=== PATIENT | male | born 1975 | race American Indian/Alaskan Native ===

== ENCOUNTER 2017-01-29 20:56 | Inpatient (IN) | payer OTHER ==
[2017-01-29 20:56] VITALS: BMI 30.5
[2017-01-29] MEDS ORDERED: Sodium Chloride 0.9% 1,000 ML IV ONE ×2 (21:08)
--- NOTE | 2017-01-29 21:18 | C.PDOC ---
History Of Present Illness 41 year old male brought in by EMS for possible drug and ETOH abuse as per girlfriend. Denies physical complaints at this time. Chief Complaint (Nursing): Substance Abuse History Per: EMS History/Exam Limitations: no limitations Onset/Duration Of Symptoms: Hrs Current Symptoms Are (Timing): Still Present Suicide/Self Injury Attempted (Context): None Modifying Factor(s): Alcohol, Other (Substance abuse) Associated Symptoms: denies: Depression, Suicidal Thoughts, Suicidal Plan Involuntary Hold By: None Recent travel outside of the [place]: No Past Medical History Reviewed: Historical Data, Nursing Documentation, Vital Signs Vital Signs: Last Vital Signs Temp 97.9 F 01/29/17 21:05 Pulse 96 H 01/29/17 21:05 Resp 20 01/29/17 21:05 BP 175/97 H 01/29/17 21:05 Pulse Ox 95 01/29/17 23:03 - Medical History PMH: Arthritis (BACK; SHOULDER), HTN - [facility] EXTRACTION OF VERTEBRAL BONE MARROW, PERCUTANEOUS APPROACH (05/04/16) FUSION 2-6 C JT W AUTOL SUB, ANT APPR A COL, OPEN (05/04/16) IMMOBILIZ/WOUND ATTN NEC (11/19/12) INSPECTION OF LARYNX, ENDO (05/04/16) RESECTION OF CERVICAL VERTEBRAL DISC, OPEN APPROACH (05/04/16) Family History: States: Unknown Family Hx - Social History Hx Tobacco Use: No Hx Alcohol Use: Yes Hx Substance Use: Yes - Immunization History Hx Tetanus Toxoid Vaccination: No Hx Influenza Vaccination: No Hx Pneumococcal Vaccination: No Review Of Systems Constitutional: Negative for: Fever, Chills Gastrointestinal: Negative for: Nausea, Vomiting, Diarrhea Physical Exam - Physical Exam Appears: Non-toxic, No Acute Distress, Other (Alert, conscious) Skin: Normal Color, Warm, Dry Head: Atraumatic, Normacephalic Oral Mucosa: Moist Neck: Normal, No Midline Cervical Tenderness, No Paracervical Tenderness, Supple Chest: Symmetrical Cardiovascular: Rhythm Regular Respiratory: Normal Breath Sounds, No Rales, No Rhonchi, No Wheezing Gastrointestinal/Abdominal: Soft, No Tenderness Extremity: Deformity (Left upper arm with swelling, does not remember what happened to him. No wrist weakness noted.) Pulses: Left Radial: Normal, Right Radial: Normal Neurological/Psych: Oriented x3, Normal Speech, Normal Cognition, Normal Motor, Normal Sensation ED Course And Treatment - Laboratory Results Result Diagrams: 01/29/17 21:17 01/29/17 21:17 ECG: Interpreted By Me, Viewed By Me ECG Rhythm: Sinus Rhythm ECG Interpretation: No Acute Changes Interpretation Of ECG: NSR, possible LVH by voltage criteria. Rate From EC O2 Sat by Pulse Oximetry: 95 (Room air) Pulse Ox Interpretation: Normal - Other Rad No standard instances X-Ray: Interpreted by Me Interpretation: fracture midshaft of left humerus Progress Note: Blood work, urinalysis, left humerous x-ray and left shoulder x- ray ordered. IV fluids and toradol administered. Upon further questioning, patient reports he was outside and passed out, he does not remember what happened after. Disposition Discussed With : Moisés Hartman Doctor Will See Patient In The: Hospital Counseled Patient/Family Regarding: Diagnosis - Disposition Disposition: HOSPITALIZED Disposition Time: 23:02 Condition: STABLE Forms: [facility] ([place]i) - POA Present On Arrival: None - Clinical Impression Clinical Impression: Syncope, Fracture, humerus closed, shaft - Scribe Statement The provider has reviewed the documentation as recorded by the Scribe Iker Heart All medical record entries made by the Scribe were at my direction and personally dictated by me. I have reviewed the chart and agree that the record accurately reflects my personal performance of the history, physical exam, medical decision making, and the department course for this patient. I have also personally directed, reviewed, and agree with the discharge instructions and disposition.
[2017-01-29 21:21] LABS: BASO # 0.1 K/uL (0.0-0.2); BASO % 1.3 % (0.0-2.0); EOS # 0.2 K/uL (0.0-0.7); EOS % 2.1 % (0.0-4.0); HEMATOCRIT 39.4 % (35.0-51.0); LYMPH # 4.5 K/uL (1.0-4.3); LYMPH % 44.1 % (20.0-40.0); MEAN CELL VOLUME 74.6 fL (80.0-94.0); MEAN CORPUSCULAR HEMOGLOBIN 23.9 pg (27.0-31.0); MEAN CORPUSCULAR HGB CONC 32.1 g/dL (33.0-37.0); MEAN PLATELET VOLUME 8.3 fL (7.2-11.7); MONO # 0.5 K/uL (0.0-0.8); NRBC % 0.1 % (0.0-2.0); RED CELL DISTRIBUTION WIDTH 14.7 % (11.5-14.5); WHITE BLOOD COUNT 10.2 K/uL (4.8-10.8)
[2017-01-29 21:33] LABS: ALB/GLOB RATIO 1.6 (1.0-2.1); ALCOHOL SERUM 75 mg/dl (0-10); ALKALINE PHOSPHATASE 80 U/L (38-126); ALT/SGPT 73 U/L (21-72); AST/SGOT 47 U/L (17-59); BILIRUBIN,TOTAL 0.6 mg/dL (0.2-1.3); BLOOD UREA NITROGEN 16 mg/dL (9-20); CALCIUM 8.6 mg/dl (8.6-10.4); CARBON DIOXIDE 22 mmol/L (22-30); CHLORIDE 100 mmol/L (98-107); GFR AFRICAN-AMERICAN > 60; GLUCOSE,RANDOM 240 mg/dL (75-110); POTASSIUM 3.9 mmol/L (3.6-5.2); SODIUM 135 mmol/L (132-148); TOTAL PROTEIN 7.5 g/dL (6.3-8.3)
--- NOTE | 2017-01-29 23:50 | CT ---
EXAM: CT Head Without Intravenous Contrast CLINICAL HISTORY: 41 years old, male; Pain; Headache and other: Passing out; Patient HX: 05-04-16; Additional info: Pasing out TECHNIQUE: Axial computed tomography images of the head/brain without intravenous contrast. All CT scans at this facility use one or more dose reduction techniques, viz.: automated exposure control; ma/kV adjustment per patient size (including targeted exams where dose is matched to indication; i.e. head); or iterative reconstruction technique. Coronal and sagittal reformatted images were created and reviewed. COMPARISON: CT - HEAD W/O (CODE STROKE) 2016-05-04 02:30 FINDINGS: Brain: No intracranial hemorrhage. No mass. Several scattered foci of decreased attenuation within periventricular/subcortical white matter. No definite edema. Ventricles: No hydrocephalus. Bones/joints: No acute fracture. Soft tissues: Unremarkable. Vasculature: Mild atherosclerotic disease of intracranial arteries. Sinuses: Near complete opacification of RIGHT frontal sinus. Scattered mild mucosal thickening of ethmoid sinuses. Scattered minimal mucosal thickening of remaining sinuses. Small LEFT maxillary retention cyst. Mastoid air cells: No mastoid effusion. Orbits: Unremarkable as visualized. IMPRESSION: 1. Nonspecific white matter changes. Acute infarction may be CT occult within first 24 hours. If a focal deficit persists, consider followup CT or MRI for further evaluation. 2. Sinus disease. 3. Incidental/non-acute findings are described above.
[2017-01-30 05:14] LABS: URINE BACTERIA RARE (<OCC); URINE BILIRUBIN NEGATIVE (NEGATIVE); URINE BLOOD NEGATIVE (NEGATIVE); URINE COLOR Yellow (YELLOW); URINE GLUCOSE (UA) 2+ mg/dL (Normal); URINE KETONE NEGATIVE (NEGATIVE); URINE LEUKOCYTE ESTERASE NEG Leu/uL (Negative); URINE PROTEIN NEGATIVE (NEGATIVE); URINE UROBILINOGEN NORMAL mg/dL (0.2-1.0)
[2017-01-30] MEDS: Oxycodone/Acetaminophen 5/325 mg Tab PO PRN ×3 (09:47→20:10)
[2017-01-30] MEDS: Multiple Vitamins Tab PO SCH (09:47)
[2017-01-30] MEDS: GlipiZIDE 5 mg SR Tab PO SCH (09:47)
--- NOTE | 2017-01-30 09:52 | RAD ---
PROCEDURE: Radiographs of the Left Shoulder HISTORY: deformity COMPARISON: No prior. FINDINGS: BONES: There is angulated displaced fracture at the midshaft of the left humerus. Patient status post prior internal fixation at the lateral aspect of the left clavicle. JOINTS: Normal. Glenohumeral and acromioclavicular joints preserved. No osteoarthritis. SOFT TISSUES: Normal. OTHER FINDINGS: None. IMPRESSION: Acute displaced and angulated fracture at the midshaft of the left humerus.
--- NOTE | 2017-01-30 09:57 | RAD ---
PROCEDURE: Radiographs of the left humerus. HISTORY: deformity COMPARISON: None. FINDINGS: BONES: Acute displaced and angulated comminuted fracture at the midshaft of the left humerus. Patient status post internal fixation at the distal left humerus and at the left elbow. Internal fixation hardware is also noted at the distal lateral portion of the left clavicle. SOFT TISSUES: Normal. OTHER FINDINGS: None. IMPRESSION: Acute comminuted and angulated fracture at the midshaft of the left humerus.
[2017-01-30] MEDS: (Novolog) Insulin Aspart, Recombinant 100 u/ml 10 ml vial SC SCH ×3 (12:33→22:12)
--- NOTE | 2017-01-30 20:31 | CON ---
NEUROLOGY CONSULTATION REASON FOR CONSULTATION: Abnormal CT head. HISTORY OF PRESENTING ILLNESS: The patient is a 41-year-old male who was admitted in the hospital after he fell down and was intoxicated and apparently had left humeral fracture. He had a CT scan of the head done which is abnormal, that is why neurology consultation was called. The CT scan of the head showed nonspecific white matter changes, several scattered foci of decreased of attenuation with periventricular white matter, no definite edema. He never had loss of vision. He never had focal weakness in the arm or leg. He never has a focal neurologic deficit. REVIEW OF SYSTEMS: Denies any headache, dizziness, chest pain, shortness of breath, abdominal pain, constipation, diarrhea, dysuria, pyuria, cough, or sputum production. PAST MEDICAL HISTORY: Includes hypertension, diabetes mellitus, hypercholesterolemia. MEDICATIONS AT HOME: Included multivitamins, metoprolol, losartan, glipizide, folic acid, thiamine, and Crestor. ALLERGIES: NO KNOWN DRUG ALLERGIES. SOCIAL HISTORY: The patient does smoke cigarettes. He does drink alcohol. He denies use of any illicit drugs. FAMILY HISTORY: Reviewed and noncontributory to the case. PHYSICAL EXAMINATION: GENERAL: The patient is an middle-aged male lying on the bed, in no acute distress. VITAL SIGNS: His blood pressure is 163/93, heart rate is 89 per minute, breathing at a rate of 16 per minute, temperature 98.3 degree Fahrenheit. HEENT: Head is normocephalic and atraumatic. NECK: Supple. There are no carotid bruit. LUNGS: Clear. CARDIOVASCULAR: S1 and S2 are audible. No murmurs. ABDOMEN: Soft and nontender. Bowel sounds are present. NEUROLOGIC: Mental status: The patient is awake, alert, oriented to time, place, person. Speech is fluent. Naming and repetition normal. Memory and cognition are intact. Cranial nerves: Pupils are 4 mm bilaterally, reactive to light. Visual rosado are full. Extraocular movements are intact. There is no facial asymmetry. Palate is upgoing bilaterally and tongue is midline. Motor examination: Tone is normal. Power is 5/5 bilaterally in all extremities. Reflexes are +2 and symmetrical. Unable to elicit reflex in the left upper extremity where his left arm is in a bandage because of left humeral fracture. Plantars are downgoing bilaterally. Cerebellar examination: [id number] shows no dysmetria. Gait is deferred at the moment. Sensory examination is intact to soft touch and pinprick. LABORATORY DATA: Reviewed, shows WBC of 10.2, hemoglobin 12.6, hematocrit 39.4 and platelets of 298. Sodium is 135, potassium 3.9, chloride 100, carbon dioxide 22, BUN of 16, creatinine of 0.9, and glucose of 240. IMPRESSION: Abnormal CT scan of the head which appears to be small vessel ischemic disease of the brain. RECOMMENDATIONS: 1. The patient to have an MRI of the brain with and without contrast. 2. Further recommendations after obtaining the MRI results. Thank you for the opportunity to participate in the care of this patient. Sofia Pool MD
--- NOTE | 2017-01-30 23:46 | CP.PCM.HP ---
History of Present Illness - History of Present Illness History of Present Illness: 41 year old male brought in by EMS for possible drug and ETOH abuse as per girlfriend. Denies physical complaints at this time. Present on Admission - Present on Admission Any Indicators Present on Admission: Yes Past Patient History - Infectious Disease Hx of Infectious Diseases: None - Past Medical History & Family History Past Medical History?: Yes - Past Social History Smoking Status: Light Smoker < 10 Cigarettes Daily - CARDIAC Hx Cardiac Disorders: Yes Hx Hypertension: Yes - PULMONARY Hx Respiratory Disorders: No - NEUROLOGICAL Hx Neurological Disorder: No - HEENT Hx HEENT Problems: No - RENAL Hx Chronic Kidney Disease: No - ENDOCRINE/METABOLIC Hx Endocrine Disorders: Yes Hx Diabetes Mellitus Type 2: Yes - HEMATOLOGICAL/ONCOLOGICAL Hx Blood Disorders: No - INTEGUMENTARY Hx Dermatological Problems: No - MUSCULOSKELETAL/RHEUMATOLOGICAL Hx Arthritis: Yes (BACK; SHOULDER) Hx Falls: Yes Hx Fractures: Yes (left elbow fx,collar bone,right shoulder rotellar cuff) Other/Comment: right pinky fx - GASTROINTESTINAL Hx Gastrointestinal Disorders: No - GENITOURINARY/GYNECOLOGICAL Hx Genitourinary Disorders: No - PSYCHIATRIC Hx Psychophysiologic Disorder: Yes Hx Substance Use: Yes - SURGICAL HISTORY Hx Surgeries: Yes Hx Orthopedic Surgery: Yes (RIGHT ROTATOR, LEFT ELBOW) - ANESTHESIA Hx Anesthesia: Yes Hx Anesthesia Reactions: No Hx Malignant Hyperthermia: No Has any member of the family had a problem w/ anesthesia?: No Meds Allergies/Adverse Reactions: Allergies Allergy/AdvReac Type Severity Reaction Status Date / Time No Known Allergies Allergy Verified 01/29/17 21:01 Physical Exam - Constitutional Appears: In Acute Distress, Agitated - Eye Exam Eye Exam: EOMI, Normal appearance, PERRL Pupil Exam: NORMAL ACCOMODATION, PERRL - Respiratory Exam Respiratory Exam: Clear to Auscultation Bilateral, NORMAL BREATHING PATTERN - Cardiovascular Exam Cardiovascular Exam: REGULAR RHYTHM - GI/Abdominal Exam GI & Abdominal Exam: Normal Bowel Sounds, Soft. absent: Tenderness - Rectal Exam Rectal Exam: Deferred Results - Vital Signs Recent Vital Signs: Last Vital Signs Temp 97.9 F 01/30/17 15:29 Pulse 71 01/30/17 15:29 Resp 20 01/30/17 15:29 BP 145/91 H 01/30/17 15:29 Pulse Ox 97 01/30/17 15:29 - Labs Result Diagrams: 01/29/17 21:17 01/29/17 21:17 Labs: Laboratory Results - last 24 hr 01/30/17 01/30/17 01/30/17 05:09 05:09 06:37 POC Glucose (mg/dL) 105 Urine Color Yellow Urine Clarity Clear Urine pH 5.0 Ur Specific [place] 1.012 Urine Protein Negative Urine Glucose (UA) 2+ H Urine Ketones Negative Urine Blood Negative Urine Nitrate Negative Urine Bilirubin Negative Urine Urobilinogen Normal Ur Leukocyte Esterase Neg Urine Bacteria Rare Urine Opiates Screen Negative Urine Methadone Screen Negative Ur Barbiturates Screen Negative Ur Phencyclidine Scrn Positive H Ur Amphetamines Screen Negative U Benzodiazepines Scrn Negative U Oth Cocaine Metabols Negative U Cannabinoids Screen Negative 01/30/17 01/30/17 01/30/17 11:34 17:23 21:52 POC Glucose (mg/dL) 163 H 116 H 248 H Urine Color Urine Clarity Urine pH Ur Specific [place] Urine Protein Urine Glucose (UA) Urine Ketones Urine Blood Urine Nitrate Urine Bilirubin Urine Urobilinogen Ur Leukocyte Esterase Urine Bacteria Urine Opiates Screen Urine Methadone Screen Ur Barbiturates Screen Ur Phencyclidine Scrn Ur Amphetamines Screen U Benzodiazepines Scrn U Oth Cocaine Metabols U Cannabinoids Screen Assessment & Plan (1) Closed fracture of shaft of left humerus Status: Suspected (2) Contusion of rib on left side Status: Suspected (3) Fracture, humerus closed, shaft Status: Acute (4) Syncope Status: Suspected (5) CVA (cerebral vascular accident) Status: Suspected (6) Nasal bone fracture Status: Suspected - Assessment and Plan (Free Text) Plan: Pt is for ortho pedic eval
[2017-01-31] MEDS: Oxycodone/Acetaminophen 5/325 mg Tab PO PRN ×3 (06:04→14:12)
[2017-01-31] MEDS: (Novolog) Insulin Aspart, Recombinant 100 u/ml 10 ml vial SC SCH ×4 (08:32→21:41)
[2017-01-31] MEDS: Multiple Vitamins Tab PO SCH (10:31)
[2017-01-31] MEDS: GlipiZIDE 5 mg SR Tab PO SCH (10:31)
--- NOTE | 2017-01-31 12:48 | RAD ---
PROCEDURE: Radiographs of the left humerus. HISTORY: left humeral shaft fx s/p splint COMPARISON: Left humerus 09/28/2016. FINDINGS: BONES: Somewhat less distracted fracture of the mid diaphysis of the left humerus is appreciated with varus angulation of the fracture site simply diminished. No new fractures appreciated separate from this area and no obvious dislocation is appreciated this patient status post ORIF distal left clavicular fracture as well as distal left humerus and proximal left ulna with fixation hardware remaining in place in all of these sites. SOFT TISSUES: Unremarkable. OTHER FINDINGS: None. IMPRESSION: Mid diaphyseal left humeral fracture somewhat less angulated than previously shown. No new interval fracture is identified. Old apparent healed fractures at the distal left clavicle, distal humerus and proximal ulna are again identified with fixation hardware in place.
--- NOTE | 2017-01-31 12:50 | RAD ---
PROCEDURE: Radiographs of the left elbow. HISTORY: elbow pain s/p fall COMPARISON: No prior. FINDINGS: BONES: Fracture of the mid diaphysis of the left humerus is appreciated with prior ORIF distal left humerus and proximal left ulna again identified as compared to prior left humerus radiographs 01/29/2017. Fixation hardware likely overlies healed fractures at this time. The radial head grossly appears intact. JOINTS: No dislocation is appreciated or subluxation. SOFT TISSUES: Normal. JOINT EFFUSION: None. OTHER FINDINGS: None IMPRESSION: No acute elbow fractures identified however fixation hardware remains placed at the distal humerus and proximal ulna which appears stable in the interval compared to prior left humeral radiographs 01/29/2017. Clinically correlate further.
--- NOTE | 2017-01-31 16:50 | RAD ---
PROCEDURE: Chest left rib series dated 01/31/2017. HISTORY: Status post fall with left sided rib pain COMPARISON: Comparison made with chest radiograph dated 05/12/2016 as well as prior rib series dated . . TECHNIQUE: Frontal radiograph of the chest and multiple oblique radiographs of the left ribs were obtained. FINDINGS: LEFT RIBS: No definitive radiographic evidence of acute displaced left-sided rib fracture. LUNGS: Poor inspiration with low lung volumes and crowded bronchovascular markings. There also appears to be some mild bibasilar atelectasis left greater than right. PLEURA: No pneumothorax or pleural fluid. CARDIOVASCULAR: Heart size is mildly enlarged. OTHER FINDINGS: Again noted are ORIF changes distal left clavicle. IMPRESSION: No evidence of acute displaced left-sided rib fracture. No evidence of pneumothorax. Poor inspiration with low lung volumes, crowded bronchovascular markings and mild bibasilar atelectasis.
--- NOTE | 2017-01-31 17:23 | CP.PCM.CON ---
History of Present Illness - History of Present Illness History of Present Illness: Ortho consultation Dr. Stark left arm pain 41M complains of left arm pain after fall. He doesn't not remember falling. Brought to ER by girlfriend for suspected drug and alcohol intoxication.Also complains of pain in elbow and left side of ribs. Denies headache, neck or back pain, RUE or BLE pain. +smoker, admits to ETOH, PCP use Patient had cervical spine surgery this year,(discectomy/fusion C4/C5 Dr. Ornelas) prior to surgery had LUE weakness and paresthesias, which he states have completely resolved postoperatively. (had prior workup for CVA) Left clavicle ORIF apporx 2.5 years ago (Dr. Gasca) Left elbow ORIF approx 24 years ago, limited extension at baseline per patient Review of Systems - Review of Systems All systems: reviewed and no additional remarkable complaints except - Constitutional Additional comments: no fever/chills - Cardiovascular Additional comments: denies CP - Respiratory Additional comments: denies SOB - Musculoskeletal Musculoskeletal: As Per HPI - Integumentary Integumentary: Swelling - Neurological Neurological: As Per HPI - Hematologic/Lymphatic Hematologic: absent: As Per HPI, Easy Bleeding, Easy Bruising, Lymphadenopathy, Other Past Patient History - Infectious Disease Hx of Infectious Diseases: None - Past Medical History & Family History Past Medical History?: Yes Past Family History: Reviewed and not pertinent - Past Social History Smoking Status: Light Smoker < 10 Cigarettes Daily - CARDIAC Hx Cardiac Disorders: Yes Hx Hypertension: Yes - PULMONARY Hx Respiratory Disorders: No - NEUROLOGICAL Hx Neurological Disorder: No - HEENT Hx HEENT Problems: No - RENAL Hx Chronic Kidney Disease: No - ENDOCRINE/METABOLIC Hx Endocrine Disorders: Yes Hx Diabetes Mellitus Type 2: Yes - HEMATOLOGICAL/ONCOLOGICAL Hx Blood Disorders: No - INTEGUMENTARY Hx Dermatological Problems: No - MUSCULOSKELETAL/RHEUMATOLOGICAL Hx Arthritis: Yes (BACK; SHOULDER) Hx Falls: Yes Hx Fractures: Yes (left elbow fx,collar bone,right shoulder rotellar cuff) Other/Comment: right pinky fx - GASTROINTESTINAL Hx Gastrointestinal Disorders: No - GENITOURINARY/GYNECOLOGICAL Hx Genitourinary Disorders: No - PSYCHIATRIC Hx Psychophysiologic Disorder: Yes Hx Substance Use: Yes - SURGICAL HISTORY Hx Surgeries: Yes Hx Orthopedic Surgery: Yes (RIGHT ROTATOR, LEFT ELBOW) - ANESTHESIA Hx Anesthesia: Yes Hx Anesthesia Reactions: No Hx Malignant Hyperthermia: No Has any member of the family had a problem w/ anesthesia?: No Meds Allergies/Adverse Reactions: Allergies Allergy/AdvReac Type Severity Reaction Status Date / Time No Known Allergies Allergy Verified 01/29/17 21:01 - Medications Medications: Current Medications Famotidine (Pepcid) 20 mg PO BID [facility] Last Admin: 01/31/17 10:31 Dose: 20 mg Folic Acid (Folic Acid) 1 mg PO DAILY [facility] Last Admin: 01/31/17 10:31 Dose: 1 mg Glipizide (Glucotrol Xl) 5 mg PO DAILY [facility] Last Admin: 01/31/17 10:31 Dose: 5 mg Heparin Sodium (Porcine) (Heparin) 5,000 units SC Q8 [facility] Last Admin: 01/31/17 14:06 Dose: 5,000 units Insulin Aspart (Novolog) 0 unit SC ACHS [facility] PRN Reason: Protocol Last Admin: 01/31/17 14:00 Dose: Not Given Ketorolac Tromethamine (Toradol) 30 mg IVP Q6 PRN PRN Reason: Pain, moderate (4-7) Last Admin: 01/31/17 16:10 Dose: 30 mg Losartan Potassium (Cozaar) 100 mg PO DAILY [facility] Last Admin: 01/31/17 10:31 Dose: 100 mg Metoprolol Tartrate (Lopressor) 50 mg PO BID [facility] Last Admin: 01/31/17 10:31 Dose: 50 mg Multivitamins (Hexavitamin) 1 tab PO DAILY [facility] Last Admin: 01/31/17 10:31 Dose: 1 tab Oxycodone/Acetaminophen (Percocet 5/325 Mg Tab) 2 tab PO Q4H PRN PRN Reason: Pain, severe (8-10) Stop: 02/02/17 08:54 Last Admin: 01/31/17 14:12 Dose: 2 tab Rosuvastatin Calcium (Crestor) 5 mg PO HS [facility] Last Admin: 01/30/17 21:15 Dose: 5 mg Thiamine HCl (Vitamin B1 Tab) 100 mg PO DAILY [facility] Last Admin: 01/31/17 10:31 Dose: 100 mg Zolpidem Tartrate (Ambien) 5 mg PO HS PRN PRN Reason: Insomnia Last Admin: 01/30/17 21:15 Dose: 5 mg Physical Exam - Constitutional Appears: Well, No Acute Distress - Head Exam Head Exam: ATRAUMATIC - Neck Exam Neck exam: Positive for: Full Rom, Normal Inspection - Respiratory Exam Respiratory Exam: NORMAL BREATHING PATTERN Additional comments: TTP left side ribs, no ecchymosis noted - Cardiovascular Exam Additional comments: +radial pulse - Expanded Upper Extremities Exam Left Upper Arm exam: deformity, swelling (well healed incision over distal clavicle) , tenderness Elbow exam: tenderness (TTP lateral elbow, pain with attempted ROM, mostly at fracture site, skin intact, no swelling or erythema to elbow) Forearm Wrist exam: full ROM (4/5 extnsion fingers/wrist (c/o arm pain)full fist , 5/5 wrist flexion, finger flexion), normal inspection Neuro motor exam: finger 2-5 abduction intact, thumb abduction, thumb IP flexion intact, thumb opposition intact, wrist extension intact Neurosensory exam: median nerve intact, radial nerve intact, ulnar nerve intact Vascular exam: radial pulse - Neurological Exam Neurological exam: Alert, Oriented x3 - Psychiatric Exam Psychiatric exam: Normal Affect, Normal Mood - Skin Skin Exam: Dry, Intact, Normal Color, Warm Results - Vital Signs Recent Vital Signs: Last Vital Signs Temp 98.2 F 01/31/17 09:35 Pulse 71 01/31/17 09:35 Resp 20 01/31/17 09:35 BP 159/84 H 01/31/17 09:35 Pulse Ox 95 01/31/17 09:35 - Labs Result Diagrams: 01/29/17 21:17 01/29/17 21:17 Labs: Laboratory Results - last 24 hr 01/30/17 01/30/17 01/31/17 17:23 21:52 06:48 POC Glucose (mg/dL) 116 H 248 H 133 H 01/31/17 16:50 POC Glucose (mg/dL) 109 Assessment & Plan (1) Closed fracture of shaft of left humerus Assessment and Plan: patient with long arm posterior splint from ER, stops at level of fracture Advised patient that improper splint was applied, and new splint with attempted closed reduction of fracture will be attempted. Advised patient risk of NV injury with injury and reduction, possible need for surgery regardless of reduction, pain control and better immobilization of fracture wiht coaptation splint indicated, patient verbally consents to splint application and reduction. Patient tolerated well. NVID pre and post splint application/ reduction. Some noted weakness to wrist and finger extension, but complains of pain. all iimaging reviewed with Dr. Stark. Says position is acceptable, and to order rebolledo brace. If patient to be discharged over the weekend,, splint is acceptable at this time, and he can f/u in office of Dr. Stark next week, and can obtain brace (or at least rx) at that time. Patient orthopedically stable. Advised patient importance of ortho follow up, as still potential for needing surgery in the future, and once swelling improves patient needs to be advanced to rebolledo brace. Elbow imaging reviewed, no acute fracture appreciated. continue coaptation splint at all times, do not remove, keep dry, cuff and collar only, no sling NWB ice brace ordered, but discharge not to be held for brace, patient orthopedically stable in splint and can follow up in office for brace Status: Acute (2) Contusion of rib on left side Assessment and Plan: xrays reviewed, no fx per radiologist, no pneumo, encourage IS, OOB f/u as per medical team Status: Acute Radiology Interpretation - Notes: Notes:: atient Name / ID : MARIBEL BABIN / [id number] Exam Date : 01/31/2017 12:19:03 ( Approved ) Study Comment : Sex / Age : M / 41Y Creator : Chris Kathleen MD Dictator : Chris Kathleen MD Parimutuel Ticket Seller : Rating Specialist : Chris Kathleen MD Approver2 : Report Date : 01/31/2017 12:41:44 My Comment : PROCEDURE: Radiographs of the left humerus. HISTORY: left humeral shaft fx s/p splint COMPARISON: Left humerus 09/28/2016. FINDINGS: BONES: Somewhat less distracted fracture of the mid diaphysis of the left humerus is appreciated with varus angulation of the fracture site simply diminished. No new fractures appreciated separate from this area and no obvious dislocation is appreciated this patient status post ORIF distal left clavicular fracture as well as distal left humerus and proximal left ulna with fixation hardware remaining in place in all of these sites. SOFT TISSUES: Unremarkable. OTHER FINDINGS: None. IMPRESSION: Mid diaphyseal left humeral fracture somewhat less angulated than previously shown. No new interval fracture is identified. Old apparent healed fractures at the distal left clavicle, distal humerus and proximal ulna are again identified with fixation hardware in place. atient Name / ID : MARIBEL BABIN / [id number] Exam Date : 01/31/2017 12:19:03 ( Approved ) Study Comment : Sex / Age : M / 41Y Creator : Chris Kathleen MD Dictator : Chris Kathleen MD Parimutuel Ticket Seller : Rating Specialist : Chris Kathleen MD Approver2 : Report Date : 01/31/2017 12:45:17 My Comment : PROCEDURE: Radiographs of the left elbow. HISTORY: elbow pain s/p fall COMPARISON: No prior. FINDINGS: BONES: Fracture of the mid diaphysis of the left humerus is appreciated with prior ORIF distal left humerus and proximal left ulna again identified as compared to prior left humerus radiographs 01/29/2017. Fixation hardware likely overlies healed fractures at this time. The radial head grossly appears intact. JOINTS: No dislocation is appreciated or subluxation. SOFT TISSUES: Normal. JOINT EFFUSION: None. OTHER FINDINGS: None IMPRESSION: No acute elbow fractures identified however fixation hardware remains placed at the distal humerus and proximal ulna which appears stable in the interval compared to prior left humeral radiographs 01/29/2017. Clinically correlate further. atient Name / ID : MARIBEL BABIN / [id number] Exam Date : 01/31/2017 12:19:03 ( Approved ) Study Comment : Sex / Age : M / 41Y Creator : Chris Kathleen MD Dictator : Chris Kathleen MD Parimutuel Ticket Seller : Rating Specialist : Chris Kathleen MD Approver2 : Report Date : 01/31/2017 12:41:44 My Comment : PROCEDURE: Radiographs of the left humerus. HISTORY: left humeral shaft fx s/p splint COMPARISON: Left humerus 09/28/2016. FINDINGS: BONES: Somewhat less distracted fracture of the mid diaphysis of the left humerus is appreciated with varus angulation of the fracture site simply diminished. No new fractures appreciated separate from this area and no obvious dislocation is appreciated this patient status post ORIF distal left clavicular fracture as well as distal left humerus and proximal left ulna with fixation hardware remaining in place in all of these sites. SOFT TISSUES: Unremarkable. OTHER FINDINGS: None. IMPRESSION: Mid diaphyseal left humeral fracture somewhat less angulated than previously shown. No new interval fracture is identified. Old apparent healed fractures at the distal left clavicle, distal humerus and proximal ulna are again identified with fixation hardware in place. atient Name / ID : MARIBEL BABIN / [id number] Exam Date : 01/29/2017 21:16:51 ( Approved ) Study Comment : Sex / Age : M / 41Y Creator : Shawn Morelos MD Dictator : Shawn Morelso MD Parimutuel Ticket Seller : Rating Specialist : Shawn Morelos MD Approver2 : Report Date : 01/30/2017 09:50:14 My Comment : PROCEDURE: Radiographs of the Left Shoulder HISTORY: deformity COMPARISON: No prior. FINDINGS: BONES: There is angulated displaced fracture at the midshaft of the left humerus. Patient status post prior internal fixation at the lateral aspect of the left clavicle. JOINTS: Normal. Glenohumeral and acromioclavicular joints preserved. No osteoarthritis. SOFT TISSUES: Normal. OTHER FINDINGS: None. IMPRESSION: Acute displaced and angulated fracture at the midshaft of the left humerus. Patient Name / ID : MARIBEL BABIN / [id number] Exam Date : 01/29/2017 21:16:32 ( Approved ) Study Comment : Sex / Age : M / 41Y Creator : Shawn Morelos MD Dictator : Shawn Morelos MD Parimutuel Ticket Seller : Rating Specialist : Shawn Morelos MD Approver2 : Report Date : 01/30/2017 09:55:54 My Comment : PROCEDURE: Radiographs of the left humerus. HISTORY: deformity COMPARISON: None. FINDINGS: BONES: Acute displaced and angulated comminuted fracture at the midshaft of the left humerus. Patient status post internal fixation at the distal left humerus and at the left elbow. Internal fixation hardware is also noted at the distal lateral portion of the left clavicle. SOFT TISSUES: Normal. OTHER FINDINGS: None. IMPRESSION: Acute comminuted and angulated fracture at the midshaft of the left humerus. Procedures Attestation:: I certify that I have explained the specified Operation(s) or Procedure(s), risks, benefits and reasonable alternatives to the Patient and/or other person responsible. The opportunity was given to ask questions and all questions answered - Orthopedic Fracture Reduction Fracture #1 Consent Obtained: verbal consent Time Out Performed: Yes Side: left Fracture Reduction Location: humerus Analgesia: none Technique: direct manipulation Post Reduction X-rays Demonstrate: acceptable reduction Post-Reduction Neuro Exam: intact Post-Reduction Vascular Exam: intact Splint Applied: Yes (coaptation splint, well padded, cuff and collar) Patient Tolerated Procedure: well - Orthopedic Splinting/Casting Injury #1 Side: left Upper Extremity Injury Location: upper arm Upper Extremity Immobilizer: sugar tong splint (coaptation long arm splint, well padded)
--- NOTE | 2017-01-31 23:13 | CP.PCM.PN ---
Subjective - Date & Time of Evaluation Date of Evaluation: 01/31/17 Time of Evaluation: 18:10 - Subjective Subjective: Patient seen and examined at bedside, pt is waiting for orthopedic eval, pt is afebrile, no distress, no N/V Objective - Vital Signs/Intake and Output Vital Signs (last 24 hours): Temp Pulse Resp BP Pulse Ox 98.2 F 71 20 159/84 H 95 01/31/17 09:35 01/31/17 09:35 01/31/17 09:35 01/31/17 09:35 01/31/17 09:35 Intake and Output: 01/31/17 02/01/17 18:59 06:59 Intake Total 800 Balance 800 - Medications Medications: Current Medications Cyclobenzaprine HCl (Flexeril) 5 mg PO TID PRN PRN Reason: Muscle spasm Last Admin: 01/31/17 21:38 Dose: 5 mg Famotidine (Pepcid) 20 mg PO BID [facility] Last Admin: 01/31/17 18:10 Dose: 20 mg Folic Acid (Folic Acid) 1 mg PO DAILY [facility] Last Admin: 01/31/17 10:31 Dose: 1 mg Glipizide (Glucotrol Xl) 5 mg PO DAILY [facility] Last Admin: 01/31/17 10:31 Dose: 5 mg Heparin Sodium (Porcine) (Heparin) 5,000 units SC Q8 [facility] Last Admin: 01/31/17 21:38 Dose: 5,000 units Insulin Aspart (Novolog) 0 unit SC ACHS [facility] PRN Reason: Protocol Last Admin: 01/31/17 21:41 Dose: Not Given Ketorolac Tromethamine (Toradol) 30 mg IVP Q6 PRN PRN Reason: Pain, moderate (4-7) Last Admin: 01/31/17 16:10 Dose: 30 mg Losartan Potassium (Cozaar) 100 mg PO DAILY [facility] Last Admin: 01/31/17 10:31 Dose: 100 mg Metoprolol Tartrate (Lopressor) 50 mg PO BID [facility] Last Admin: 01/31/17 18:10 Dose: 50 mg Multivitamins (Hexavitamin) 1 tab PO DAILY [facility] Last Admin: 01/31/17 10:31 Dose: 1 tab Oxycodone/Acetaminophen (Percocet 5/325 Mg Tab) 2 tab PO Q4H PRN PRN Reason: Pain, severe (8-10) Stop: 02/02/17 08:54 Last Admin: 01/31/17 14:12 Dose: 2 tab Rosuvastatin Calcium (Crestor) 5 mg PO HS [facility] Last Admin: 01/31/17 21:39 Dose: 5 mg Thiamine HCl (Vitamin B1 Tab) 100 mg PO DAILY [facility] Last Admin: 01/31/17 10:31 Dose: 100 mg Zolpidem Tartrate (Ambien) 5 mg PO HS PRN PRN Reason: Insomnia Last Admin: 01/30/17 21:15 Dose: 5 mg - Labs Labs: 01/29/17 21:17 01/29/17 21:17 - Constitutional Appears: No Acute Distress - Head Exam Head Exam: ATRAUMATIC, NORMAL INSPECTION, NORMOCEPHALIC - Eye Exam Eye Exam: EOMI, Normal appearance, PERRL Pupil Exam: NORMAL ACCOMODATION, PERRL - Respiratory Exam Respiratory Exam: Clear to Ausculation Bilateral, NORMAL BREATHING PATTERN - Cardiovascular Exam Cardiovascular Exam: REGULAR RHYTHM, +S1, +S2. absent: Murmur - GI/Abdominal Exam GI & Abdominal Exam: Soft, Normal Bowel Sounds. absent: Tenderness Assessment and Plan (1) Closed fracture of shaft of left humerus Status: Acute (2) Contusion of rib on left side Status: Acute (3) CVA (cerebral vascular accident) Status: Acute
--- NOTE | 2017-02-01 04:23 | CP.PCM.PN ---
Subjective - Date & Time of Evaluation Date of Evaluation: 02/01/17 Time of Evaluation: 08:45 - Subjective Subjective: Pt seen and examined at bedside, in mild distress due to pain, pt is for orthopedic eval Objective - Vital Signs/Intake and Output Vital Signs (last 24 hours): Temp Pulse Resp BP Pulse Ox 98.3 F 66 20 157/92 H 98 01/31/17 23:10 01/31/17 23:10 01/31/17 23:10 01/31/17 23:10 01/31/17 23:10 Intake and Output: 01/31/17 02/01/17 18:59 06:59 Intake Total 800 Balance 800 - Medications Medications: Current Medications Cyclobenzaprine HCl (Flexeril) 5 mg PO TID PRN PRN Reason: Muscle spasm Last Admin: 01/31/17 21:38 Dose: 5 mg Famotidine (Pepcid) 20 mg PO BID [facility] Last Admin: 01/31/17 18:10 Dose: 20 mg Folic Acid (Folic Acid) 1 mg PO DAILY [facility] Last Admin: 01/31/17 10:31 Dose: 1 mg Glipizide (Glucotrol Xl) 5 mg PO DAILY [facility] Last Admin: 01/31/17 10:31 Dose: 5 mg Heparin Sodium (Porcine) (Heparin) 5,000 units SC Q8 [facility] Last Admin: 01/31/17 21:38 Dose: 5,000 units Insulin Aspart (Novolog) 0 unit SC ACHS [facility] PRN Reason: Protocol Last Admin: 01/31/17 21:41 Dose: Not Given Ketorolac Tromethamine (Toradol) 30 mg IVP Q6 PRN PRN Reason: Pain, moderate (4-7) Last Admin: 01/31/17 23:37 Dose: 30 mg Losartan Potassium (Cozaar) 100 mg PO DAILY [facility] Last Admin: 01/31/17 10:31 Dose: 100 mg Metoprolol Tartrate (Lopressor) 50 mg PO BID [facility] Last Admin: 01/31/17 18:10 Dose: 50 mg Multivitamins (Hexavitamin) 1 tab PO DAILY [facility] Last Admin: 01/31/17 10:31 Dose: 1 tab Oxycodone/Acetaminophen (Percocet 5/325 Mg Tab) 2 tab PO Q4H PRN PRN Reason: Pain, severe (8-10) Stop: 02/02/17 08:54 Last Admin: 01/31/17 14:12 Dose: 2 tab Rosuvastatin Calcium (Crestor) 5 mg PO HS [facility] Last Admin: 01/31/17 21:39 Dose: 5 mg Thiamine HCl (Vitamin B1 Tab) 100 mg PO DAILY [facility] Last Admin: 01/31/17 10:31 Dose: 100 mg Zolpidem Tartrate (Ambien) 5 mg PO HS PRN PRN Reason: Insomnia Last Admin: 01/30/17 21:15 Dose: 5 mg - Labs Labs: 01/29/17 21:17 01/29/17 21:17 - Constitutional Appears: No Acute Distress - Head Exam Head Exam: ATRAUMATIC, NORMAL INSPECTION, NORMOCEPHALIC - Eye Exam Eye Exam: EOMI, Normal appearance, PERRL Pupil Exam: NORMAL ACCOMODATION, PERRL - Neck Exam Neck Exam: Full ROM, Normal Inspection. absent: Lymphadenopathy - Respiratory Exam Respiratory Exam: Clear to Ausculation Bilateral, NORMAL BREATHING PATTERN - Cardiovascular Exam Cardiovascular Exam: REGULAR RHYTHM, +S1, +S2. absent: Murmur - GI/Abdominal Exam GI & Abdominal Exam: Soft, Normal Bowel Sounds. absent: Tenderness Assessment and Plan (1) Closed fracture of shaft of left humerus Assessment & Plan: (1) Closed fracture of shaft of left humerus Assessment and Plan: patient with long arm posterior splint from ER, stops at level of fracture Advised patient that improper splint was applied, and new splint with attempted closed reduction of fracture will be attempted. Advised patient risk of NV injury with injury and reduction, possible need for surgery regardless of reduction, pain control and better immobilization of fracture wiht coaptation splint indicated, patient verbally consents to splint application and reduction. Patient tolerated well. NVID pre and post splint application/ reduction. Some noted weakness to wrist and finger extension, but complains of pain. all iimaging reviewed with Dr. Stark. Says position is acceptable, and to order rebolledo brace. If patient to be discharged over the weekend,, splint is acceptable at this time, and he can f/u in office of Dr. Stark next week, and can obtain brace (or at least rx) at that time. Patient orthopedically stable. Advised patient importance of ortho follow up, as still potential for needing surgery in the future, and once swelling improves patient needs to be advanced to rebolledo brace. Elbow imaging reviewed, no acute fracture appreciated. continue coaptation splint at all times, do not remove, keep dry, cuff and collar only, no sling NWB ice brace ordered, but discharge not to be held for brace, patient orthopedically stable in splint and can follow up in office for brace Status: Acute Status: Suspected (2) Contusion of rib on left side Assessment & Plan: (2) Contusion of rib on left side Assessment and Plan: xrays reviewed, no fx per radiologist, no pneumo, encourage IS, OOB Status: Acute Status: Suspected (3) Fracture, humerus closed, shaft Status: Acute (4) Syncope Status: Suspected (5) CVA (cerebral vascular accident) Status: Suspected (6) Nasal bone fracture Status: Suspected
[2017-02-01] MEDS: (Novolog) Insulin Aspart, Recombinant 100 u/ml 10 ml vial SC SCH ×4 (07:47→22:31)
[2017-02-01 08:10] LABS: BASO % 0.6 % (0.0-2.0); EOS # 0.2 K/uL (0.0-0.7); HEMATOCRIT 35.3 % (35.0-51.0); LYMPH # 2.9 K/uL (1.0-4.3); LYMPH % 38.3 % (20.0-40.0); MEAN CELL VOLUME 73.9 fL (80.0-94.0); MEAN CORPUSCULAR HEMOGLOBIN 23.8 pg (27.0-31.0); MEAN CORPUSCULAR HGB CONC 32.2 g/dL (33.0-37.0); MEAN PLATELET VOLUME 8.3 fL (7.2-11.7); MONO # 0.5 K/uL (0.0-0.8); MONO % 6.5 % (0.0-10.0); NRBC % 0.2 % (0.0-2.0); RED CELL DISTRIBUTION WIDTH 14.7 % (11.5-14.5); WHITE BLOOD COUNT 7.5 K/uL (4.8-10.8)
[2017-02-01 08:47] LABS: BLOOD UREA NITROGEN 14 mg/dL (9-20); CALCIUM 8.3 mg/dl (8.6-10.4); CARBON DIOXIDE 27 mmol/L (22-30); CHLORIDE 101 mmol/L (98-107); GFR AFRICAN-AMERICAN > 60; GLUCOSE,RANDOM 109 mg/dL (75-110); POTASSIUM 3.8 mmol/L (3.6-5.2); SODIUM 135 mmol/L (132-148)
[2017-02-01] MEDS: Multiple Vitamins Tab PO SCH (09:22)
[2017-02-01] MEDS: GlipiZIDE 5 mg SR Tab PO SCH (09:22)
[2017-02-01] MEDS: Oxycodone/Acetaminophen 5/325 mg Tab PO PRN (09:22)
[2017-02-01 16:18] VITALS: RESP 20
[2017-02-02] MEDS: (Novolog) Insulin Aspart, Recombinant 100 u/ml 10 ml vial SC SCH ×4 (07:56→21:46)
[2017-02-02] MEDS: Oxycodone/Acetaminophen 5/325 mg Tab PO PRN ×2 (08:53→21:54)
[2017-02-02] MEDS: Multiple Vitamins Tab PO SCH (09:07)
[2017-02-02] MEDS: GlipiZIDE 5 mg SR Tab PO SCH (09:07)
--- NOTE | 2017-02-02 15:56 | CARD ---
APPROVED REPORT EKG Measurement Heart [id number] <Conclusion> Normal sinus rhythm Moderate voltage criteria for LVH, may be normal variant Borderline ECG
[2017-02-02] MEDS ORDERED: Oxycodone/Acetaminophen 5/325 mg Tab PO ONE (17:38)
--- NOTE | 2017-02-02 22:36 | CP.PCM.PN ---
Subjective - Date & Time of Evaluation Date of Evaluation: 02/02/17 Time of Evaluation: 14:05 - Subjective Subjective: pt seen and evalauted continues to c/o pain Objective - Vital Signs/Intake and Output Vital Signs (last 24 hours): Temp Pulse Resp BP Pulse Ox 98.2 F 63 20 148/87 98 02/02/17 15:42 02/02/17 15:42 02/02/17 15:42 02/02/17 15:42 02/02/17 15:42 Intake and Output: 02/02/17 02/03/17 18:59 06:59 Intake Total 700 Balance 700 - Medications Medications: Current Medications Cyclobenzaprine HCl (Flexeril) 5 mg PO TID PRN PRN Reason: Muscle spasm Last Admin: 02/02/17 09:07 Dose: 5 mg Famotidine (Pepcid) 20 mg PO BID [facility] Last Admin: 02/02/17 17:47 Dose: 20 mg Folic Acid (Folic Acid) 1 mg PO DAILY [facility] Last Admin: 02/02/17 09:07 Dose: 1 mg Glipizide (Glucotrol Xl) 5 mg PO DAILY [facility] Last Admin: 02/02/17 09:07 Dose: 5 mg Heparin Sodium (Porcine) (Heparin) 5,000 units SC Q8 [facility] Last Admin: 02/02/17 21:54 Dose: 5,000 units Insulin Aspart (Novolog) 0 unit SC ACHS [facility] PRN Reason: Protocol Last Admin: 02/02/17 21:46 Dose: Not Given Ketorolac Tromethamine (Toradol) 30 mg IVP Q6 PRN PRN Reason: Pain, moderate (4-7) Losartan Potassium (Cozaar) 100 mg PO DAILY [facility] Last Admin: 02/02/17 09:07 Dose: 100 mg Metoprolol Tartrate (Lopressor) 50 mg PO BID [facility] Last Admin: 02/02/17 17:47 Dose: 50 mg Multivitamins (Hexavitamin) 1 tab PO DAILY [facility] Last Admin: 02/02/17 09:07 Dose: 1 tab Oxycodone/Acetaminophen (Percocet 5/325 Mg Tab) 2 tab PO Q4H PRN PRN Reason: Pain, severe (8-10) Stop: 02/05/17 21:21 Last Admin: 02/02/17 21:54 Dose: 2 tab Rosuvastatin Calcium (Crestor) 5 mg PO HS [facility] Last Admin: 02/02/17 21:54 Dose: 5 mg Thiamine HCl (Vitamin B1 Tab) 100 mg PO DAILY [facility] Last Admin: 02/02/17 09:07 Dose: 100 mg Zolpidem Tartrate (Ambien) 5 mg PO HS PRN PRN Reason: Insomnia Last Admin: 01/30/17 21:15 Dose: 5 mg - Labs Labs: 02/01/17 08:02 02/01/17 08:02 Assessment and Plan (1) Closed fracture of shaft of left humerus Status: Suspected (2) Contusion of rib on left side Status: Suspected (3) Fracture, humerus closed, shaft Status: Acute (4) Syncope Status: Suspected (5) CVA (cerebral vascular accident) Status: Suspected (6) Nasal bone fracture Status: Suspected
[2017-02-03] MEDS: (Novolog) Insulin Aspart, Recombinant 100 u/ml 10 ml vial SC SCH ×4 (07:55→22:30)
[2017-02-03] MEDS: GlipiZIDE 5 mg SR Tab PO SCH (10:19)
[2017-02-03] MEDS: Multiple Vitamins Tab PO SCH (10:19)
[2017-02-03] MEDS: Oxycodone/Acetaminophen 5/325 mg Tab PO PRN ×2 (10:20→18:23)
--- NOTE | 2017-02-03 11:29 | CP.PCM.PN ---
Subjective - Date & Time of Evaluation Date of Evaluation: 02/03/17 Time of Evaluation: : - Subjective Subjective: Patient complaining of rib pain > arm pain. He says it hurts everytime he takes a deep breath. Denies numbness/tingling. Able to move his left hand more. Review of Systems - Review of Systems All systems: reviewed and no additional remarkable complaints except - Cardiovascular Cardiovascular: UNREMARKABLE - Respiratory Respiratory: As Per HPI - Gastrointestinal Gastrointestinal: UNREMARKABLE - Musculoskeletal Musculoskeletal: As Par HPI - Integumentary Integumentary: UNREMARKABLE - Neurological Neurological: As Per HPI - Hematologic/Lymphatic Hematologic: UNREMARKABLE Objective - Vital Signs/Intake and Output Vital Signs (last 24 hours): Temp Pulse Resp BP Pulse Ox 98.8 F 77 20 146/57 L 95 02/03/17 08:40 02/03/17 08:40 02/03/17 08:40 02/03/17 08:40 02/03/17 08:40 - Medications Medications: Current Medications Cyclobenzaprine HCl (Flexeril) 5 mg PO TID PRN PRN Reason: Muscle spasm Last Admin: 02/02/17 09:07 Dose: 5 mg Famotidine (Pepcid) 20 mg PO BID [facility] Last Admin: 02/03/17 10:19 Dose: 20 mg Folic Acid (Folic Acid) 1 mg PO DAILY [facility] Last Admin: 02/03/17 10:19 Dose: 1 mg Glipizide (Glucotrol Xl) 5 mg PO DAILY [facility] Last Admin: 02/03/17 10:19 Dose: 5 mg Heparin Sodium (Porcine) (Heparin) 5,000 units SC Q8 [facility] Last Admin: 02/02/17 21:54 Dose: 5,000 units Insulin Aspart (Novolog) 0 unit SC ACHS [facility] PRN Reason: Protocol Last Admin: 02/03/17 07:55 Dose: Not Given Ketorolac Tromethamine (Toradol) 30 mg IVP Q6 PRN PRN Reason: Pain, moderate (4-7) Last Admin: 02/03/17 10:27 Dose: 30 mg Losartan Potassium (Cozaar) 100 mg PO DAILY [facility] Last Admin: 02/03/17 10:19 Dose: 100 mg Metoprolol Tartrate (Lopressor) 50 mg PO BID [facility] Last Admin: 02/02/17 17:47 Dose: 50 mg Multivitamins (Hexavitamin) 1 tab PO DAILY [facility] Last Admin: 02/03/17 10:19 Dose: 1 tab Oxycodone/Acetaminophen (Percocet 5/325 Mg Tab) 2 tab PO Q4H PRN PRN Reason: Pain, severe (8-10) Stop: 02/05/17 21:21 Last Admin: 02/03/17 10:20 Dose: 2 tab Rosuvastatin Calcium (Crestor) 5 mg PO HS [facility] Last Admin: 02/02/17 21:54 Dose: 5 mg Thiamine HCl (Vitamin B1 Tab) 100 mg PO DAILY [facility] Last Admin: 02/02/17 09:07 Dose: 100 mg Zolpidem Tartrate (Ambien) 5 mg PO HS PRN PRN Reason: Insomnia Last Admin: 02/02/17 23:57 Dose: 5 mg - Labs Labs: 02/01/17 08:02 02/01/17 08:02 - Constitutional Appears: Well, In Acute Distress - Head Exam Head Exam: ATRAUMATIC - Neck Exam Neck Exam: Normal Inspection Additional comments: non tender - Respiratory Exam Respiratory Exam: NORMAL BREATHING PATTERN Additional comments: takes shallow breaths no swelling or ecchymosis noted exquisite TTP chest wall - Cardiovascular Exam Additional comments: +radial pulse - Extremities Exam Additional comments: lUE; splint readjusted and anna reapplied. Sensation itnact, ROM improving. - Neurological Exam Neurological Exam: Alert, Awake, Oriented x3 Neuro motor strength exam: Left Upper Extremity: 5 (+ROM wrist/fingers/humb improved, full, 5/5 and painfree) - Psychiatric Exam Psychiatric exam: Normal Affect, Normal Mood - Skin Skin Exam: Dry, Intact, Normal Color, Warm Assessment and Plan (1) Closed fracture of shaft of left humerus Assessment & Plan: acceptable position as per Dr. Stark patient will be advanced to Trevino brace either while in house or as outpatient patient will need 1-2 serial follow ups with ortho for imaging, patient instructed on importance of follow up as outpatient, agrees keep splint dry and intact Status: Acute (2) Contusion of rib on left side Assessment & Plan: lidoderm patch ordered defer further imaging if warranted to medical team, patient saturating well, IS ordered d/w Dr. Stark, agrees with above Status: Suspected
[2017-02-03] MEDS: Lidocaine 5% Patch TD SCH (12:25)
--- NOTE | 2017-02-03 23:44 | CP.PCM.PN ---
Subjective - Date & Time of Evaluation Date of Evaluation: 02/03/17 Time of Evaluation: 18:35 - Subjective Subjective: pt is seen and examined, is being followed by orthopedic. i discussed the case with ortho, he is for intervention. pt c/o left arm pain Objective - Vital Signs/Intake and Output Vital Signs (last 24 hours): Temp Pulse Resp BP Pulse Ox 98.4 F 65 20 153/82 H 97 02/03/17 15:34 02/03/17 15:34 02/03/17 15:34 02/03/17 15:34 02/03/17 15:34 - Medications Medications: Current Medications Cyclobenzaprine HCl (Flexeril) 5 mg PO TID PRN PRN Reason: Muscle spasm Last Admin: 02/02/17 09:07 Dose: 5 mg Famotidine (Pepcid) 20 mg PO BID [facility] Last Admin: 02/03/17 18:22 Dose: 20 mg Folic Acid (Folic Acid) 1 mg PO DAILY [facility] Last Admin: 02/03/17 10:19 Dose: 1 mg Glipizide (Glucotrol Xl) 5 mg PO DAILY [facility] Last Admin: 02/03/17 10:19 Dose: 5 mg Heparin Sodium (Porcine) (Heparin) 5,000 units SC Q8 [facility] Last Admin: 02/03/17 22:23 Dose: 5,000 units Insulin Aspart (Novolog) 0 unit SC ACHS [facility] PRN Reason: Protocol Last Admin: 02/03/17 22:30 Dose: Not Given Ketorolac Tromethamine (Toradol) 30 mg IVP Q6 PRN PRN Reason: Pain, moderate (4-7) Last Admin: 02/03/17 20:46 Dose: 30 mg Lidocaine (Lidoderm) 1 ea TD DAILY [facility] Last Admin: 02/03/17 12:25 Dose: 1 ea Losartan Potassium (Cozaar) 100 mg PO DAILY [facility] Last Admin: 02/03/17 10:19 Dose: 100 mg Metoprolol Tartrate (Lopressor) 50 mg PO BID [facility] Last Admin: 02/03/17 18:22 Dose: 50 mg Multivitamins (Hexavitamin) 1 tab PO DAILY [facility] Last Admin: 02/03/17 10:19 Dose: 1 tab Oxycodone/Acetaminophen (Percocet 5/325 Mg Tab) 2 tab PO Q4H PRN PRN Reason: Pain, severe (8-10) Stop: 02/05/17 21:21 Last Admin: 02/03/17 18:23 Dose: 2 tab Rosuvastatin Calcium (Crestor) 5 mg PO HS [facility] Last Admin: 02/03/17 22:22 Dose: 5 mg Thiamine HCl (Vitamin B1 Tab) 100 mg PO DAILY [facility] Last Admin: 02/03/17 10:51 Dose: 100 mg Zolpidem Tartrate (Ambien) 5 mg PO HS PRN PRN Reason: Insomnia Last Admin: 02/02/17 23:57 Dose: 5 mg - Labs Labs: 02/01/17 08:02 02/01/17 08:02 - Constitutional Appears: No Acute Distress - Head Exam Head Exam: ATRAUMATIC, NORMAL INSPECTION, NORMOCEPHALIC - Eye Exam Eye Exam: EOMI, Normal appearance, PERRL Pupil Exam: NORMAL ACCOMODATION, PERRL - Respiratory Exam Respiratory Exam: Clear to Ausculation Bilateral, NORMAL BREATHING PATTERN - Cardiovascular Exam Cardiovascular Exam: REGULAR RHYTHM, +S1, +S2. absent: Murmur - GI/Abdominal Exam GI & Abdominal Exam: Soft, Normal Bowel Sounds. absent: Tenderness Assessment and Plan (1) Closed fracture of shaft of left humerus Status: Acute (2) Contusion of rib on left side Status: Suspected (3) Fracture, humerus closed, shaft Status: Acute (4) Syncope Status: Suspected (5) CVA (cerebral vascular accident) Status: Suspected (6) Nasal bone fracture Status: Suspected
[2017-02-04] MEDS: Oxycodone/Acetaminophen 5/325 mg Tab PO PRN ×3 (07:10→21:22)
[2017-02-04] MEDS: (Novolog) Insulin Aspart, Recombinant 100 u/ml 10 ml vial SC SCH ×4 (07:27→21:24)
[2017-02-04] MEDS: GlipiZIDE 5 mg SR Tab PO SCH (09:08)
[2017-02-04] MEDS: Multiple Vitamins Tab PO SCH (09:08)
[2017-02-04] MEDS: Lidocaine 5% Patch TD SCH (09:10)
--- NOTE | 2017-02-04 22:57 | CP.PCM.PN ---
Subjective - Date & Time of Evaluation Date of Evaluation: 02/04/17 Time of Evaluation: 09:50 - Subjective Subjective: Pt is seen and evaluated at bedside.pt still complains of rib pain and right arm pain, is being followed by orthopedic Objective - Vital Signs/Intake and Output Vital Signs (last 24 hours): Temp Pulse Resp BP Pulse Ox 98.1 F 69 20 148/92 H 96 02/04/17 15:08 02/04/17 15:08 02/04/17 15:08 02/04/17 15:08 02/04/17 15:08 Intake and Output: 02/04/17 02/05/17 18:59 06:59 Intake Total 650 Balance 650 - Medications Medications: Current Medications Cyclobenzaprine HCl (Flexeril) 5 mg PO TID PRN PRN Reason: Muscle spasm Last Admin: 02/02/17 09:07 Dose: 5 mg Famotidine (Pepcid) 20 mg PO BID [facility] Last Admin: 02/04/17 18:20 Dose: 20 mg Folic Acid (Folic Acid) 1 mg PO DAILY [facility] Last Admin: 02/04/17 09:08 Dose: 1 mg Glipizide (Glucotrol Xl) 5 mg PO DAILY [facility] Last Admin: 02/04/17 09:08 Dose: 5 mg Heparin Sodium (Porcine) (Heparin) 5,000 units SC Q8 [facility] Last Admin: 02/04/17 21:24 Dose: 5,000 units Insulin Aspart (Novolog) 0 unit SC ACHS [facility] PRN Reason: Protocol Last Admin: 02/04/17 21:24 Dose: Not Given Ketorolac Tromethamine (Toradol) 30 mg IVP Q6 PRN PRN Reason: Pain, moderate (4-7) Last Admin: 02/04/17 18:19 Dose: 30 mg Lidocaine (Lidoderm) 1 ea TD DAILY [facility] Last Admin: 02/04/17 09:10 Dose: 1 ea Losartan Potassium (Cozaar) 100 mg PO DAILY [facility] Last Admin: 02/04/17 09:08 Dose: 100 mg Metoprolol Tartrate (Lopressor) 50 mg PO BID [facility] Last Admin: 02/04/17 18:19 Dose: 50 mg Multivitamins (Hexavitamin) 1 tab PO DAILY [facility] Last Admin: 02/04/17 09:08 Dose: 1 tab Oxycodone/Acetaminophen (Percocet 5/325 Mg Tab) 2 tab PO Q4H PRN PRN Reason: Pain, severe (8-10) Stop: 02/05/17 21:21 Last Admin: 02/04/17 21:22 Dose: 2 tab Rosuvastatin Calcium (Crestor) 5 mg PO HS [facility] Last Admin: 02/04/17 21:22 Dose: 5 mg Thiamine HCl (Vitamin B1 Tab) 100 mg PO DAILY [facility] Last Admin: 02/04/17 09:10 Dose: 100 mg Zolpidem Tartrate (Ambien) 5 mg PO HS PRN PRN Reason: Insomnia Last Admin: 02/02/17 23:57 Dose: 5 mg - Labs Labs: 02/01/17 08:02 02/01/17 08:02 - Constitutional Appears: No Acute Distress - Head Exam Head Exam: ATRAUMATIC, NORMAL INSPECTION, NORMOCEPHALIC - Eye Exam Eye Exam: EOMI, Normal appearance, PERRL Pupil Exam: NORMAL ACCOMODATION, PERRL - Respiratory Exam Respiratory Exam: Clear to Ausculation Bilateral, NORMAL BREATHING PATTERN - Cardiovascular Exam Cardiovascular Exam: REGULAR RHYTHM, +S1, +S2. absent: Murmur - GI/Abdominal Exam GI & Abdominal Exam: Soft, Normal Bowel Sounds. absent: Tenderness - Extremities Exam Additional comments: Extremities Exam Additional comments: LUE: +ROM wrist/fingers, sensation intact, +radial pulse, splint adjusted - Neurological Exam Neurological Exam: Alert, Awake, CN II-XII Intact, Normal Gait, Oriented x3 Assessment and Plan (1) Closed fracture of shaft of left humerus Status: Acute (2) Contusion of rib on left side Status: Suspected (3) Fracture, humerus closed, shaft Status: Acute (4) Syncope Status: Suspected (5) CVA (cerebral vascular accident) Status: Suspected (6) Nasal bone fracture Status: Suspected - Assessment and Plan (Free Text) Assessment: - (1) Closed fracture of shaft of left humerus Assessment & Plan: orthopedically stable at this time brace ordered, for follow up patient to be advanced to Trevino brace from splint as per Dr. Stark, can be as inpatient or outpatient orthopedically stable patient instructed of importance of close ortho f/u q1-2 weeks for serial xrays to see if fracture position is maintained and healing, may still be indicated for surgery in future
[2017-02-05] MEDS: Oxycodone/Acetaminophen 5/325 mg Tab PO PRN ×2 (01:26→13:36)
[2017-02-05] MEDS: (Novolog) Insulin Aspart, Recombinant 100 u/ml 10 ml vial SC SCH ×4 (07:22→21:48)
[2017-02-05] MEDS: Multiple Vitamins Tab PO SCH (10:56)
[2017-02-05] MEDS: GlipiZIDE 5 mg SR Tab PO SCH (10:56)
[2017-02-05] MEDS: Lidocaine 5% Patch TD SCH (10:57)
--- NOTE | 2017-02-05 12:43 | CP.PCM.PN ---
Subjective - Date & Time of Evaluation Date of Evaluation: 02/05/17 Time of Evaluation: 12:32 - Subjective Subjective: Patient still complaining of left sided rib, elbow, and arm pain. Denies numbness/tingling. Objective - Vital Signs/Intake and Output Vital Signs (last 24 hours): Temp Pulse Resp BP Pulse Ox 98.2 F 61 20 158/98 H 97 02/05/17 08:00 02/05/17 08:00 02/05/17 08:00 02/05/17 08:00 02/05/17 08:00 Intake and Output: 02/05/17 02/05/17 06:59 18:59 Intake Total 20 Balance 20 - Medications Medications: Current Medications Cyclobenzaprine HCl (Flexeril) 5 mg PO TID PRN PRN Reason: Muscle spasm Last Admin: 02/05/17 01:30 Dose: 5 mg Famotidine (Pepcid) 20 mg PO BID [facility] Last Admin: 02/05/17 10:56 Dose: 20 mg Folic Acid (Folic Acid) 1 mg PO DAILY [facility] Last Admin: 02/05/17 10:56 Dose: 1 mg Glipizide (Glucotrol Xl) 5 mg PO DAILY [facility] Last Admin: 02/05/17 10:56 Dose: 5 mg Heparin Sodium (Porcine) (Heparin) 5,000 units SC Q8 [facility] Last Admin: 02/05/17 05:37 Dose: 5,000 units Insulin Aspart (Novolog) 0 unit SC ACHS [facility] PRN Reason: Protocol Last Admin: 02/05/17 11:28 Dose: Not Given Lidocaine (Lidoderm) 1 ea TD DAILY [facility] Last Admin: 02/05/17 10:57 Dose: 1 ea Losartan Potassium (Cozaar) 100 mg PO DAILY [facility] Last Admin: 02/05/17 10:56 Dose: 100 mg Metoprolol Tartrate (Lopressor) 50 mg PO BID [facility] Last Admin: 02/05/17 10:56 Dose: 50 mg Multivitamins (Hexavitamin) 1 tab PO DAILY [facility] Last Admin: 02/05/17 10:56 Dose: 1 tab Oxycodone/Acetaminophen (Percocet 5/325 Mg Tab) 2 tab PO Q4H PRN PRN Reason: Pain, severe (8-10) Stop: 02/05/17 21:21 Last Admin: 02/05/17 01:26 Dose: 2 tab Rosuvastatin Calcium (Crestor) 5 mg PO HS [facility] Last Admin: 02/04/17 21:22 Dose: 5 mg Thiamine HCl (Vitamin B1 Tab) 100 mg PO DAILY [facility] Last Admin: 02/05/17 10:58 Dose: 100 mg Zolpidem Tartrate (Ambien) 5 mg PO HS PRN PRN Reason: Insomnia Last Admin: 02/05/17 00:06 Dose: 5 mg - Labs Labs: 02/01/17 08:02 02/01/17 08:02 - Extremities Exam Additional comments: LUE: +ROM wrist/fingers, sensation intact, +radial pulse, splint adjusted. Assessment and Plan (1) Closed fracture of shaft of left humerus Assessment & Plan: orthopedically stable at this time brace ordered, for follow up patient to be advanced to Trevino brace from splint as per Dr. Stark, can be as inpatient or outpatient orthopedically stable patient instructed of importance of close ortho f/u q1-2 weeks for serial xrays to see if fracture position is maintained and healing, may still be indicated for surgery in future per Dr. Stark, f/u in office call for appointment [phone] Status: Acute (2) Contusion of rib on left side Status: Suspected
--- NOTE | 2017-02-05 21:28 | CP.PCM.PN ---
Subjective - Date & Time of Evaluation Date of Evaluation: 02/05/17 Time of Evaluation: 18:15 - Subjective Subjective: Pt seen and examined at bedside, continues to c/o left sided rib, elbow, and arm pain. Denies numbness/tingling. He is orthopedically stable at this time brace ordered, for follow up patient to be advanced to Trevino brace from splint as per Dr. Stark, can be as inpatient or outpatient orthopedically stable patient instructed of importance of close ortho f/u q1-2 weeks for serial xrays to see if fracture position is maintained and healing, may still be indicated for surgery in future Objective - Vital Signs/Intake and Output Vital Signs (last 24 hours): Temp Pulse Resp BP Pulse Ox 98.1 F 68 20 154/83 H 95 02/05/17 16:36 02/05/17 16:36 02/05/17 16:36 02/05/17 16:36 02/05/17 16:36 Intake and Output: 02/05/17 02/06/17 18:59 06:59 Intake Total 750 Balance 750 - Medications Medications: Current Medications Cyclobenzaprine HCl (Flexeril) 5 mg PO TID PRN PRN Reason: Muscle spasm Last Admin: 02/05/17 01:30 Dose: 5 mg Famotidine (Pepcid) 20 mg PO BID [facility] Last Admin: 02/05/17 18:16 Dose: 20 mg Folic Acid (Folic Acid) 1 mg PO DAILY [facility] Last Admin: 02/05/17 10:56 Dose: 1 mg Glipizide (Glucotrol Xl) 5 mg PO DAILY [facility] Last Admin: 02/05/17 10:56 Dose: 5 mg Heparin Sodium (Porcine) (Heparin) 5,000 units SC Q8 [facility] Last Admin: 02/05/17 21:16 Dose: 5,000 units Insulin Aspart (Novolog) 0 unit SC ACHS [facility] PRN Reason: Protocol Last Admin: 02/05/17 18:03 Dose: Not Given Ketorolac Tromethamine (Toradol) 30 mg IVP Q6 PRN PRN Reason: Pain, moderate (4-7) Last Admin: 02/05/17 21:15 Dose: 30 mg Lidocaine (Lidoderm) 1 ea TD DAILY [facility] Last Admin: 02/05/17 10:57 Dose: 1 ea Losartan Potassium (Cozaar) 100 mg PO DAILY [facility] Last Admin: 02/05/17 10:56 Dose: 100 mg Metoprolol Tartrate (Lopressor) 50 mg PO BID [facility] Last Admin: 02/05/17 18:16 Dose: 50 mg Multivitamins (Hexavitamin) 1 tab PO DAILY [facility] Last Admin: 02/05/17 10:56 Dose: 1 tab Rosuvastatin Calcium (Crestor) 5 mg PO HS [facility] Last Admin: 02/05/17 21:15 Dose: 5 mg Thiamine HCl (Vitamin B1 Tab) 100 mg PO DAILY [facility] Last Admin: 02/05/17 10:58 Dose: 100 mg Zolpidem Tartrate (Ambien) 5 mg PO HS PRN PRN Reason: Insomnia Last Admin: 02/05/17 00:06 Dose: 5 mg - Labs Labs: 02/01/17 08:02 02/01/17 08:02 - Constitutional Appears: No Acute Distress - Head Exam Head Exam: ATRAUMATIC, NORMAL INSPECTION, NORMOCEPHALIC - Eye Exam Eye Exam: EOMI, Normal appearance, PERRL Pupil Exam: NORMAL ACCOMODATION, PERRL - Respiratory Exam Respiratory Exam: Clear to Ausculation Bilateral, NORMAL BREATHING PATTERN - Cardiovascular Exam Cardiovascular Exam: REGULAR RHYTHM, +S1, +S2. absent: Murmur - GI/Abdominal Exam GI & Abdominal Exam: Soft, Normal Bowel Sounds. absent: Tenderness - Rectal Exam Rectal Exam: Deferred Assessment and Plan (1) Closed fracture of shaft of left humerus Status: Acute (2) Contusion of rib on left side Status: Suspected (3) Fracture, humerus closed, shaft Status: Acute (4) Syncope Status: Suspected (5) CVA (cerebral vascular accident) Status: Suspected (6) Nasal bone fracture Status: Suspected
[2017-02-05] MEDS ORDERED: Oxycodone/Acetaminophen 5/325 mg Tab PO STA (22:48)
[2017-02-06] MEDS: (Novolog) Insulin Aspart, Recombinant 100 u/ml 10 ml vial SC SCH ×2 (08:25→12:05)
[2017-02-06] MEDS: Multiple Vitamins Tab PO SCH (10:21)
[2017-02-06] MEDS: GlipiZIDE 5 mg SR Tab PO SCH (10:21)
[2017-02-06] MEDS: Lidocaine 5% Patch TD SCH (10:22)
--- NOTE | 2017-02-06 12:16 | CP.PCM.PN ---
Subjective - Date & Time of Evaluation Date of Evaluation: 02/06/17 Time of Evaluation: 12:11 - Subjective Subjective: Patient refusing exam. Says "I am talking to my sister, I'm not talking to you" Advised patient that discharge will not be held for brace, that splint is appropriate immobilization of the fracture, and per Dr. Stark the position is acceptable at this time. Advised patient to call today for follow up appointment within 1-5 days in office, and that he will need new xrays and be fitting for the brace at that time if position is still acceptable. Advised patient that he still may be indicated for surgery in the future, and outpatient follow up. Patient states he is just going to go to another ER. Advised patient he should follow up with orthopedic surgeon of his choice, but again reminded him that he is properly immobilized and outpatient follow up in office is recommended as per Dr. Stark. Objective - Vital Signs/Intake and Output Vital Signs (last 24 hours): Temp Pulse Resp BP Pulse Ox 97.8 F 67 20 168/95 H 97 02/06/17 08:31 02/06/17 08:31 02/06/17 08:31 02/06/17 08:31 02/06/17 08:31 Intake and Output: 02/06/17 02/06/17 06:59 18:59 Intake Total 0 Balance 0 - Medications Medications: Current Medications Cyclobenzaprine HCl (Flexeril) 5 mg PO TID PRN PRN Reason: Muscle spasm Last Admin: 02/06/17 10:30 Dose: 5 mg Famotidine (Pepcid) 20 mg PO BID [facility] Last Admin: 02/06/17 10:21 Dose: 20 mg Folic Acid (Folic Acid) 1 mg PO DAILY [facility] Last Admin: 02/06/17 10:21 Dose: 1 mg Glipizide (Glucotrol Xl) 5 mg PO DAILY [facility] Last Admin: 02/06/17 10:21 Dose: 5 mg Insulin Aspart (Novolog) 0 unit SC ACHS [facility] PRN Reason: Protocol Last Admin: 02/06/17 12:05 Dose: Not Given Ketorolac Tromethamine (Toradol) 30 mg IVP Q6 PRN PRN Reason: Pain, moderate (4-7) Last Admin: 02/06/17 07:05 Dose: 30 mg Lidocaine (Lidoderm) 1 ea TD DAILY [facility] Last Admin: 02/06/17 10:22 Dose: 1 ea Losartan Potassium (Cozaar) 100 mg PO DAILY [facility] Last Admin: 02/06/17 10:21 Dose: 100 mg Metoprolol Tartrate (Lopressor) 50 mg PO BID [facility] Last Admin: 02/06/17 10:21 Dose: 50 mg Multivitamins (Hexavitamin) 1 tab PO DAILY [facility] Last Admin: 02/06/17 10:21 Dose: 1 tab Rosuvastatin Calcium (Crestor) 5 mg PO HS [facility] Last Admin: 02/05/17 21:15 Dose: 5 mg Thiamine HCl (Vitamin B1 Tab) 100 mg PO DAILY [facility] Last Admin: 02/06/17 10:22 Dose: 100 mg Zolpidem Tartrate (Ambien) 5 mg PO HS PRN PRN Reason: Insomnia Last Admin: 02/05/17 00:06 Dose: 5 mg - Labs Labs: 02/01/17 08:02 02/01/17 08:02 - Constitutional Appears: Well, No Acute Distress - Head Exam Head Exam: ATRAUMATIC - Respiratory Exam Respiratory Exam: NORMAL BREATHING PATTERN - Extremities Exam Additional comments: refuses further exam - Neurological Exam Neuro motor strength exam: Left Upper Extremity: 5 (moving wrist, fingers) - Psychiatric Exam Psychiatric exam: Agitated - Skin Skin Exam: Dry, Intact, Normal Color, Warm Assessment and Plan (1) Closed fracture of shaft of left humerus Assessment & Plan: patient refusing exam, says he is going to walk out of hospital again reiterated importance of follow up as per Dr. Stark keep splint dry and intact, f/u 1-5 days in office for repeat imaging, progression to brace as pre Dr. Stark if acceptable position maintained. Encouraged patient to obtain second opinion if desired, recommended calling office of surgeon today for appointment as outpatient Status: Acute (2) Contusion of rib on left side Status: Suspected
--- NOTE | 2017-02-06 13:58 | CP.PCM.PN ---
Subjective - Date & Time of Evaluation Date of Evaluation: 02/06/17 Time of Evaluation: 09:40 - Subjective Subjective: patient seen today , awake , alert, ox3, denies nay chest pain, sob, numbness, tinglings to LUE c/o pain to the left upper extremity ,and left rib cage and back , improved with pain medication awaiting for brace seen by Ortho- recommends to keep splint dry and intact, f/u 1-5 days in office for repeat imaging, progression to brace as pre Dr. Stark if acceptable position maintained. and recommended calling office of surgeon today for appointment as outpatient Objective - Vital Signs/Intake and Output Vital Signs (last 24 hours): Temp Pulse Resp BP Pulse Ox 97.8 F 67 20 168/95 H 97 02/06/17 08:31 02/06/17 08:31 02/06/17 08:31 02/06/17 08:31 02/06/17 08:31 Intake and Output: 02/06/17 02/06/17 06:59 18:59 Intake Total 0 Balance 0 - Medications Medications: Current Medications Cyclobenzaprine HCl (Flexeril) 5 mg PO TID PRN PRN Reason: Muscle spasm Last Admin: 02/06/17 10:30 Dose: 5 mg Famotidine (Pepcid) 20 mg PO BID [facility] Last Admin: 02/06/17 10:21 Dose: 20 mg Folic Acid (Folic Acid) 1 mg PO DAILY [facility] Last Admin: 02/06/17 10:21 Dose: 1 mg Glipizide (Glucotrol Xl) 5 mg PO DAILY [facility] Last Admin: 02/06/17 10:21 Dose: 5 mg Insulin Aspart (Novolog) 0 unit SC ACHS [facility] PRN Reason: Protocol Last Admin: 02/06/17 12:05 Dose: Not Given Ketorolac Tromethamine (Toradol) 30 mg IVP Q6 PRN PRN Reason: Pain, moderate (4-7) Last Admin: 02/06/17 07:05 Dose: 30 mg Lidocaine (Lidoderm) 1 ea TD DAILY [facility] Last Admin: 02/06/17 10:22 Dose: 1 ea Losartan Potassium (Cozaar) 100 mg PO DAILY [facility] Last Admin: 02/06/17 10:21 Dose: 100 mg Metoprolol Tartrate (Lopressor) 50 mg PO BID [facility] Last Admin: 02/06/17 10:21 Dose: 50 mg Multivitamins (Hexavitamin) 1 tab PO DAILY [facility] Last Admin: 02/06/17 10:21 Dose: 1 tab Rosuvastatin Calcium (Crestor) 5 mg PO HS [facility] Last Admin: 02/05/17 21:15 Dose: 5 mg Thiamine HCl (Vitamin B1 Tab) 100 mg PO DAILY [facility] Last Admin: 02/06/17 10:22 Dose: 100 mg Zolpidem Tartrate (Ambien) 5 mg PO HS PRN PRN Reason: Insomnia Last Admin: 02/05/17 00:06 Dose: 5 mg - Labs Labs: 02/01/17 08:02 02/01/17 08:02 Assessment and Plan - Assessment and Plan (Free Text) Assessment: A/P 41 yr old male admitted for syncope/ closed fx of shaft left humerus and rib contussion seen by ortho today stable for discharge home today from orthopedics standpoint and recommends to f/u ionht Dr. Stark office in 1-5 days and if brae available go to Dr. Hong office to place seen by Dr. Hartman, discharge plan discussed with patient , who understands and agrees with plan percocet given for pain control and discussed with patient side effect, addiction etc and pt verbalized understanding
[2017-02-06 15:42] VITALS: BP 174/102; PULSE 63; TEMP 98.1; O2SAT 98
--- NOTE | 2017-02-06 22:29 | CP.PCM.DIS ---
Provider - Provider Date of Admission: 01/29/17 23:03 Attending physician: Moisés Hartman MD Time Spent in preparation of Discharge (in minutes): 54 Diagnosis - Discharge Diagnosis (1) Closed fracture of shaft of left humerus Status: Acute (2) Contusion of rib on left side Status: Suspected (3) Fracture, humerus closed, shaft Status: Acute (4) Syncope Status: Suspected (5) CVA (cerebral vascular accident) Status: Suspected (6) Nasal bone fracture Status: Suspected Hospital Course - Lab Results Lab Results: Most Recent Lab Values WBC 7.5 K/uL (4.8-10.8) 02/01/17 08:02 RBC 4.77 Mil/uL (4.40-5.90) 02/01/17 08:02 Hgb 11.3 g/dL (12.0-18.0) L 02/01/17 08:02 Hct 35.3 % (35.0-51.0) 02/01/17 08:02 MCV 73.9 fL (80.0-94.0) L 02/01/17 08:02 MCH 23.8 pg (27.0-31.0) L 02/01/17 08:02 MCHC 32.2 g/dL (33.0-37.0) L 02/01/17 08:02 RDW 14.7 % (11.5-14.5) H 02/01/17 08:02 Plt Count 255 K/uL (130-400) 02/01/17 08:02 MPV 8.3 fL (7.2-11.7) 02/01/17 08:02 Neut % (Auto) 51.6 % (50.0-75.0) 02/01/17 08:02 Lymph % (Auto) 38.3 % (20.0-40.0) 02/01/17 08:02 Vance % (Auto) 6.5 % (0.0-10.0) 02/01/17 08:02 Eos % (Auto) 3.0 % (0.0-4.0) 02/01/17 08:02 Baso % (Auto) 0.6 % (0.0-2.0) 02/01/17 08:02 Neut # 3.9 K/uL (1.8-7.0) 02/01/17 08:02 Lymph # 2.9 K/uL (1.0-4.3) 02/01/17 08:02 Vance # 0.5 K/uL (0.0-0.8) 02/01/17 08:02 Eos # 0.2 K/uL (0.0-0.7) 02/01/17 08:02 Baso # 0.0 K/uL (0.0-0.2) 02/01/17 08:02 Sodium 135 mmol/L (132-148) 02/01/17 08:02 Potassium 3.8 mmol/L (3.6-5.2) 02/01/17 08:02 Chloride 101 mmol/L (98-107) 02/01/17 08:02 Carbon Dioxide 27 mmol/L (22-30) 02/01/17 08:02 Anion Gap 11 (10-20) 02/01/17 08:02 BUN 14 mg/dL (9-20) 02/01/17 08:02 Creatinine 0.8 mg/dL (0.8-1.5) 02/01/17 08:02 Est GFR ( Amer) > 60 02/01/17 08:02 Est GFR (Non-Af Amer) > 60 02/01/17 08:02 POC Glucose (mg/dL) 109 mg/dL (65-110) 02/06/17 16:21 Random Glucose 109 mg/dL (75-110) 02/01/17 08:02 Calcium 8.3 mg/dl (8.6-10.4) L 02/01/17 08:02 Total Bilirubin 0.6 mg/dL (0.2-1.3) 01/29/17 21:17 AST 47 U/L (17-59) 01/29/17 21:17 ALT 73 U/L (21-72) H D 01/29/17 21:17 Alkaline Phosphatase 80 U/L (38-126) 01/29/17 21:17 Total Protein 7.5 g/dL (6.3-8.3) 01/29/17 21:17 Albumin 4.6 g/dL (3.5-5.0) 01/29/17 21:17 Globulin 2.9 gm/dL (2.2-3.9) 01/29/17 21:17 Albumin/Globulin Ratio 1.6 (1.0-2.1) 01/29/17 21:17 Urine Color Yellow (YELLOW) 01/30/17 05:09 Urine Clarity Clear (Clear) 01/30/17 05:09 Urine pH 5.0 (5.0-8.0) 01/30/17 05:09 Ur Specific [place] 1.012 (1.003-1.030) 01/30/17 05:09 Urine Protein Negative mg/dL (NEGATIVE) 01/30/17 05:09 Urine Glucose (UA) 2+ mg/dL (Normal) H 01/30/17 05:09 Urine Ketones Negative mg/dL (NEGATIVE) 01/30/17 05:09 Urine Blood Negative (NEGATIVE) 01/30/17 05:09 Urine Nitrate Negative (NEGATIVE) 01/30/17 05:09 Urine Bilirubin Negative (NEGATIVE) 01/30/17 05:09 Urine Urobilinogen Normal mg/dL (0.2-1.0) 01/30/17 05:09 Ur Leukocyte Esterase Neg Wilma/uL (Negative) 01/30/17 05:09 Urine Bacteria Rare (<OCC) 01/30/17 05:09 Urine Opiates Screen Negative (NEGATIVE) 01/30/17 05:09 Urine Methadone Screen Negative (NEGATIVE) 01/30/17 05:09 Ur Barbiturates Screen Negative (NEGATIVE) 01/30/17 05:09 Ur Phencyclidine Scrn Positive (NEGATIVE) H 01/30/17 05:09 Ur Amphetamines Screen Negative (NEGATIVE) 01/30/17 05:09 U Benzodiazepines Scrn Negative (NEGATIVE) 01/30/17 05:09 U Oth Cocaine Metabols Negative (NEGATIVE) 01/30/17 05:09 U Cannabinoids Screen Negative (NEGATIVE) 01/30/17 05:09 Alcohol, Quantitative 75 mg/dl (0-10) H 01/29/17 21:17 - Hospital Course Hospital Course: A/P 41 yr old male admitted for syncope/ closed fx of shaft left humerus and rib contussion seen by ortho today stable for discharge home today from orthopedics standpoint and recommends to f/u giuliana Stark office in 1-5 days and if brae available go to Dr. Hong office to place seen and examined , discharge plan discussed with patient , who understands and agrees with plan . He will have cast. i discussed with orthopedic. percocet given for pain control and discussed with patient side effect, addiction etc and pt verbalized understanding Discharge Exam - Head Exam Head Exam: ATRAUMATIC - Eye Exam Eye Exam: EOMI, Normal appearance, PERRL Pupil Exam: NORMAL ACCOMODATION, PERRL - ENT Exam ENT Exam: Mucous Membranes Moist - Respiratory Exam Respiratory Exam: Clear to PA & Lateral, NORMAL BREATHING PATTERN - Cardiovascular Exam Cardiovascular Exam: REGULAR RHYTHM, +S1, +S2 - GI/Abdominal Exam GI & Abdominal Exam: Normal Bowel Sounds - Neurological Exam Neurological exam: Alert, Oriented x3 Discharge Plan - Discharge Medications Prescriptions: Losartan [Cozaar] 100 mg PO DAILY #30 tab Rosuvastatin Calcium [Crestor] 5 mg PO HS #30 tab Cyclobenzaprine [Cyclobenzaprine HCl] 10 mg PO BID PRN #20 tab PRN Reason: Muscle Spasm GlipiZIDE SR [Glucotrol XL] 5 mg PO DAILY #30 tab Lidocaine 5% [Lidoderm] 1 ea TD DAILY #10 patch Metoprolol Tartrate [Lopressor] 50 mg PO BID #60 tab Famotidine [Pepcid] 20 mg PO DAILY #30 tab oxyCODONE/Acetaminophen [Percocet 5/325 mg Tab] 1 ea PO Q4 PRN #30 tab PRN Reason: Pain, Severe (8-10) - Follow Up Plan Condition: STABLE Disposition: HOME/ ROUTINE Instructions: Arm Fracture in Adults (DC), Syncope (DC), Diabetic Foot Care (DC ), Basic Carbohydrate Counting (DC), Meal Planning with the Plate Method (DC), Meal Planning with Diabetes Exchanges (DC), Splint Care (DC) Additional Instructions: Please f/u with Dr. Ricardo in 3-5 days - call for appointment -[phone] Please f/u with Dr. Hartman office in 1 week - [phone] when brace available, please go to Dr. Stark office to place the brace in Please keep the sling in place Please NWB SHAYNAE Referrals: Gosia Stark MD [Staff Provider] - Moisés Hartman MD [Staff Provider] -
== END 2017-02-06 16:56 | disposition home or self-care (01) | DRG 563 ==
LOC: C.ER 20:56 → C.9E 23:03 → C.6T 23:49
PROVIDERS: ADMIT Internal Medicine; ATTEND Internal Medicine
DX: S42.352A Displaced comminuted fracture of shaft of humerus, left arm, initial encounter for closed fracture (principal); E11.9 Type 2 diabetes mellitus without complications; S02.2XXA Fracture of nasal bones, initial encounter for closed fracture; S20.212A Contusion of left front wall of thorax, initial encounter; S42.302A Unspecified fracture of shaft of humerus, left arm, initial encounter for closed fracture; F10.129 Alcohol abuse with intoxication, unspecified; I10 Essential (primary) hypertension; F17.210 Nicotine dependence, cigarettes, uncomplicated; E78.00 Pure hypercholesterolemia, unspecified; F16.10 Hallucinogen abuse, uncomplicated; W19.XXXA Unspecified fall, initial encounter; Z87.81 Personal history of (healed) traumatic fracture